=== PATIENT | male | born 1970 | race Hispanic/Latino ===

== ENCOUNTER 2020-12-06 05:31 | Day surgery (SDC) | payer OTHER ==
[2020-12-03 11:16] VITALS: BP 131/76
[~2020-12-06] VITALS: Ht 185.4 cm; Wt 96.9 kg
[2020-12-06] VITALS (11 sets, daily range): BP systolic 100–131; BP diastolic 64–83
[~2020-12-06 05:31] MED LIST: LISI20TA24 PO; ROSU20TA31 PO
[2020-12-06] MEDS ORDERED: CEFTRIAXONE 1G VIAL ONE (05:46)
[2020-12-06] MEDS ORDERED: LACTATED RINGERS 1000ML 1,000 ML IV ONE (05:47)
[2020-12-06] MEDS ORDERED: LIDOCAINE PF 100MG/5ML (2%) SYRINGE 5ML ONE (06:43)
[2020-12-06] MEDS ORDERED: PROPOFOL 10 MG/ML 20ML VIAL IV ONE (06:43)
[2020-12-06] MEDS ORDERED: MIDAZOLAM HCL 1 MG/ML 2ML VIAL ONE (06:43)
[2020-12-06] MEDS ORDERED: FENTANYL CITRATE PF 50 MCG/1 ML 2ML VIAL ONE (06:44)
[2020-12-06] MEDS ORDERED: GLYCOPYRROLATE 1 MG/5 ML SYRINGE ONE (07:56)
[2020-12-06] MEDS ORDERED: CEFTRIAXONE 1G VIAL IVP ONE (08:00)
[2020-12-06] MEDS ORDERED: 0.9%NACL 10ML VIAL ONE (08:11)
== END 2020-12-06 09:35 | disposition home or self-care (01) ==
LOC: DAH 05:31
PROVIDERS: ATTEND Urology
DX: R97.20 Elevated prostate specific antigen [PSA] (principal); Z20.822 Contact with and (suspected) exposure to COVID-19; N41.1 Chronic prostatitis; K64.4 Residual hemorrhoidal skin tags; I10 Essential (primary) hypertension; I25.10 Atherosclerotic heart disease of native coronary artery without angina pectoris; Z79.899 Other long term (current) drug therapy; Z98.890 Other specified postprocedural states; Z80.42 Family history of malignant neoplasm of prostate
CPT/HCPCS: 55700; 76872; 87426; A4215 ×2; A4221; A4222; A4223; A4600; A4663; A6260; J0696; J2001; J2250; J2704; J3010; J3490; J7120; 76942